=== PATIENT | male | born 1965 | race African-American/Black ===

== ENCOUNTER 2016-07-04 16:55 | Emergency (ER) | payer SELFPAY ==
[~2016-07-04] VITALS: Ht 167.6 cm; Wt 68.0 kg
[~2016-07-04 16:55] MED LIST: GLIP5TAB10 PO; INSU100I17 SQ; LISI1TAB7 PO; LISI2.5T PO; METF10002 PO
[2016-07-04] MEDS ORDERED: IV NORMAL SALINE 1000ML BAG 1,000 ML IV ONE ×2 (17:15→19:15)
[2016-07-04 17:26] LABS: BASO # 0.1 x10^3/uL (0.0-0.2); BASO % 1 % (0-3); EOS % 0 % (0-3); HEMATOCRIT 46.2 % (39.0-53.0); HEMOGLOBIN 15.4 g/dL (13.0-17.5); LYMPH # 1.8 x10^3/uL (1.0-4.8); LYMPH % 18 % (24-48); MEAN CORPUSCULAR HEMOGLOBIN 33 pg (25-35); MEAN CORPUSCULAR HGB CONC 33 g/dL (31-37); MEAN CORPUSCULAR VOLUME 98 fL (79-100); MONO % 9 % (0-9); NEUT % 73 % (31-73); PLATELET COUNT 410 x10^3/uL (140-400); RED BLOOD COUNT 4.71 x10^6/uL (4.30-5.70); RED CELL DISTRIBUTION WIDTH 13.8 % (11.5-14.5); WHITE BLOOD COUNT 10.2 x10^3/uL (4.0-11.0)
[2016-07-04 17:29] LABS: BILIRUBIN,URINE NEGATIVE (NEG); GLUCOSE,URINE >=1000 mg/dL (NEG); NITRITE,URINE NEGATIVE (NEG); PROTEIN,URINE NEGATIVE (NEG-TRACE); UROBILINOGEN,URINE 0.2 mg/dL (0.2 mg/dL)
[2016-07-04 17:41] LABS: BACTERIA,URINE FEW /HPF (0-FEW); RBC,URINE RARE /HPF (0-2); SQUAMOUS EPITHELIAL CELL,UR OCC /LPF
[2016-07-04 17:45] LABS: BARBITURATES NEG (NEG); BENZODIAZEPINES NEG (NEG); CANNABINOIDS POS (NEG); COCAINE NEG (NEG); METHADONE NEG (NEG); OPIATES NEG (NEG); PHENCYCLIDINE NEG (NEG)
[2016-07-04 17:46] LABS: ETHANOL, URINE NEG (NEG)
[2016-07-04 17:53] LABS: CALCIUM 9.6 mg/dL (8.5-10.1); DIRECT BILIRUBIN 0.1 mg/dL (0.0-0.2); GFR 94.6; POTASSIUM 4.6 mmol/L (3.5-5.1); TOTAL BILIRUBIN 0.4 mg/dL (0.2-1.0); TOTAL PROTEIN 8.2 g/dL (6.4-8.2)
[2016-07-04] MEDS ORDERED: INSULIN REGULAR 100 UNIT/ML 10ML VIAL. IV ONE ×2 (18:00→19:15)
--- NOTE | 2016-07-04 18:02 | PHYS DOC ---
Past Medical History Past Medical History: Diabetes-Type II, Hypertension Past Surgical History: Tonsillectomy Alcohol Use: Occasionally Drug Use: Marijuana Adult General Chief Complaint Chief Complaint: BLOOD SUGAR PROBLEM HPI HPI 51-year-old male presenting to the emergency department today with generalized weakness for the past 2 weeks. Patient has a history of elevated blood sugar. Location generalized. Duration intermittent. No alleviating factors. He takes 15 units of insulin glargine twice a day in the morning and at night without any short acting insulin. He denies having a primary care doctor. Review of systems is negative for chest pain shortness of breath abdominal pain nausea vomiting diarrhea. All other review of systems is negative unless otherwise noted in history of present illness. Review of Systems Review of Systems SEE ABOVE. Current Medications Current Medications Current Medications Medications (Trade) Dose Ordered Sig/Victor Manuel Start Time Stop Time Status Last Admin Dose Admin Insulin Human Regular (Novolin R Vial) 10 unit 1X ONCE 07/04/16 18:00 07/04/16 18:01 DC 07/04/16 17:58 10 UNIT Insulin Human Regular 10 unit 10 unit 1X ONCE 07/04/16 19:15 07/04/16 19:16 DC 07/04/16 19:11 10 UNIT Sodium Chloride (Iv Sodium Chloride 0.9% 1000ml Bag) 1,000 ml @ 1,000 mls/hr 1X ONCE 07/04/16 19:15 07/04/16 20:14 DC 07/04/16 19:10 1,000 MLS/HR Allergies Allergies Allergies Coded Allergies Type Severity Reaction Last Updated Verified No Known Drug Allergies 06/26/15 No Physical Exam Physical Exam Constitutional: Well developed, well nourished, no acute distress, non-toxic appearance. Well-appearing individual. HENT: Normocephalic, atraumatic, bilateral external ears normal, oropharynx moist, no oral exudates, nose normal. Eyes: PERRLA, EOMI, conjunctiva normal, no discharge. Neck: Normal range of motion, no tenderness, supple, no stridor. [] Cardiovascular:Heart rate regular rhythm, no murmur Lungs & Thorax: Bilateral breath sounds clear to auscultation Abdomen: Bowel sounds normal, soft, no tenderness, no masses, no pulsatile masses. Skin: Warm, dry, no erythema, no rash. [] Back: No tenderness, no CVA tenderness. Extremities: No tenderness, no cyanosis, no clubbing, ROM intact, no edema. Neurologic: Alert and oriented X 3, normal motor function, normal sensory function, no focal deficits noted. Psychologic: Affect normal, judgement normal, mood normal. [] Current Patient Data Vital Signs Vital Signs Date Time Temp Pulse Resp B/P Pulse Ox O2 Delivery O2 Flow Rate FiO2 07/04/16 19:12 105 20 110/65 94 Room Air 07/04/16 17:00 98.5 98.5 Lab Values Laboratory Tests Test 07/04/16 17:08 07/04/16 17:10 07/04/16 17:20 07/04/16 18:59 Glucose (Fingerstick) 464mg/dL (70-99) H 499mg/dL (70-99) H White Blood Count 10.2x10^3/uL (4.0-11.0) Red Blood Count 4.71x10^6/uL (4.30-5.70) Hemoglobin 15.4g/dL (13.0-17.5) Hematocrit 46.2% (39.0-53.0) Mean Corpuscular Volume 98fL (79-100) Mean Corpuscular Hemoglobin 33pg (25-35) Mean Corpuscular Hemoglobin Concent 33g/dL (31-37) Red Cell Distribution Width 13.8% (11.5-14.5) Platelet Count 410x10^3/uL (140-400) H Neutrophils (%) (Auto) 73% (31-73) Lymphocytes (%) (Auto) 18% (24-48) L Monocytes (%) (Auto) 9% (0-9) Eosinophils (%) (Auto) 0% (0-3) Basophils (%) (Auto) 1% (0-3) Neutrophils # (Auto) 7.5x10^3uL (1.8-7.7) Lymphocytes # (Auto) 1.8x10^3/uL (1.0-4.8) Monocytes # (Auto) 0.9x10^3/uL (0.0-1.1) Eosinophils # (Auto) 0.0x10^3/uL (0.0-0.7) Basophils # (Auto) 0.1x10^3/uL (0.0-0.2) Sodium Level 135mmol/L (136-145) L Potassium Level 4.6mmol/L (3.5-5.1) Chloride Level 96mmol/L (98-107) L Carbon Dioxide Level 30mmol/L (21-32) Anion Gap 9 (6-14) Blood Urea Nitrogen 16mg/dL (8-26) Creatinine 1.0mg/dL (0.7-1.3) Estimated GFR (Cockcroft-Gault) 94.6 Glucose Level 558mg/dL (70-99) *H Serum Osmolality 306mOsm/Kg (279-304) H Lactic Acid Level 1.8mmol/L (0.4-2.0) Calcium Level 9.6mg/dL (8.5-10.1) Total Bilirubin 0.4mg/dL (0.2-1.0) Direct Bilirubin 0.1mg/dL (0.0-0.2) Aspartate Amino Transferase (AST) 20U/L (15-37) Alanine Aminotransferase (ALT) 38U/L (16-63) Alkaline Phosphatase 133U/L (46-116) H Troponin I Quantitative < 0.017ng/mL (0.000-0.055) Total Protein 8.2g/dL (6.4-8.2) Albumin 3.0g/dL (3.4-5.0) L Lipase 175U/L (73-393) Urine Collection Type Unknown Urine Color Yellow Urine Clarity Clear Urine pH 5.0 Urine Specific [place] >=1.030 Urine Protein Negativemg/dL (NEG-TRACE) Urine Glucose (UA) >=1000mg/dL (NEG) Urine Ketones (Stick) Tracemg/dL (NEG) Urine Blood Negative (NEG) Urine Nitrite Negative (NEG) Urine Bilirubin Negative (NEG) Urine Urobilinogen Dipstick 0.2mg/dL (0.2 mg/dL) Urine Leukocyte Esterase Negative (NEG) Urine RBC Rare/HPF (0-2) Urine WBC 1-4/HPF (0-4) Urine Squamous Epithelial Cells Occ/LPF Urine Bacteria Few/HPF (0-FEW) Urine Opiates Screen Neg (NEG) Urine Methadone Screen Neg (NEG) Urine Barbiturates Neg (NEG) Urine Phencyclidine Screen Neg (NEG) Urine Amphetamine/Methamphetamine Neg (NEG) Urine Benzodiazepines Screen Neg (NEG) Urine Cocaine Screen Neg (NEG) Urine Cannabinoids Screen Pos (NEG) Urine Ethyl Alcohol Neg (NEG) Laboratory Tests 07/04/16 17:10 Laboratory Tests 07/04/16 17:10 EKG EKG [] Radiology/Procedures Radiology/Procedures [] Course & Med Decision Making Course & Med Decision Making Pertinent Labs and Imaging studies reviewed. (See chart for details) [] 51-year-old male presenting to the emergency department with elevated blood sugars. Initial blood sugar here for 64. IV insulin given. Otherwise the patient 's vital signs afebrile with tachycardia likely secondary to dehydration. Pertinent physical exam. Patient has a normal physical exam. Otherwise workup negative for DKA. Blood sugar was elevated. 2 L of fluid given for dehydration. 10 units of insulin given. Recheck shows similar glucose. 10 more units of insulin given. Recheck glucose came down approximately 100. Again, patient not acidotic. Not in diabetic ketoacidosis.. Patient discharged follow-up with one of our primary care doctors over the next 2-3 days for chronic diabetic treatment. Dragon Disclaimer Dragon Disclaimer This electronic medical record was generated, in whole or in part, using a voice recognition dictation system. Departure Departure Impression: Primary Impression: Uncontrolled diabetes mellitus Disposition: 01 HOME, SELF-CARE Condition: STABLE Referrals: NO PCP (PCP) ETHEL SALGADO MD Patient Instructions: Hyperglycemia Additional Instructions: Thank you for allowing us to participate in your care today. Followup with your primary care physician in 1-2 days if your symptoms do not improve. If you do not have a primary care provider you can ask for a list of our primary care providers. Return to the emergency department you have any new or concerning findings. This should be evaluated by the primary care physician and any necessary consulting services for continued management within a few days after discharge. Return to emergency room if you have any new or concerning symptoms including but not limited to fever, chills, nausea, vomiting, intractable pain, any new rashes, chest pain, shortness of air, uncontrolled bleeding, difficulty breathing, and/or vision loss. You may have been prescribed medication that can change in your level of thinking and ability to operate machinery. These medications include hydrocodone and Ativan. Also, Benadryl has been known to do this as well. Be sure to check with your pharmacist and ask if the medications you've prescribed can affect your level of consciousness. I recommend not operating heavy machinery or driving while on medication such as these. VAHID PHILLIPS MD Jul 04, 2016 18:02
[2016-07-04 20:30] VITALS: BP 124/67
== END 2016-07-04 20:40 | disposition home or self-care (01) ==
LOC: ER 16:55
DX: E11.65 Type 2 diabetes mellitus with hyperglycemia (principal); E86.0 Dehydration; R00.0 Tachycardia, unspecified; I10 Essential (primary) hypertension; F12.10 Cannabis abuse, uncomplicated; Z79.4 Long term (current) use of insulin
CPT/HCPCS: 36415; 80048; 80076; 81001; 82947; 83605; 83690; 83930; 84484; 85027; 96361; 96374; 96376; 99284; G0481; J1815; J7030

== ENCOUNTER 2016-07-10 14:06 | Emergency (ER) | payer SELFPAY ==
[~2016-07-10] VITALS: Ht 167.6 cm; Wt 56.7 kg
[2016-07-10 14:07] VITALS: BP 136/95
[2016-07-10] MEDS ORDERED: IV NORMAL SALINE 1000ML BAG 1,000 ML IV SCH (14:30)
[2016-07-10 14:33] LABS: BILIRUBIN,URINE NEGATIVE (NEG); GLUCOSE,URINE >=1000 mg/dL (NEG); NITRITE,URINE NEGATIVE (NEG); PROTEIN,URINE NEGATIVE (NEG-TRACE); UROBILINOGEN,URINE 0.2 mg/dL (0.2 mg/dL)
[2016-07-10 14:39] LABS: BACTERIA,URINE 0 /HPF (0-FEW); RBC,URINE 0 /HPF (0-2); SQUAMOUS EPITHELIAL CELL,UR OCC /LPF; WBC,URINE 0 /HPF (0-4)
[2016-07-10 14:44] LABS: BASO # 0.1 x10^3/uL (0.0-0.2); BASO % 1 % (0-3); EOS % 0 % (0-3); HEMOGLOBIN 13.1 g/dL (13.0-17.5); LYMPH # 1.3 x10^3/uL (1.0-4.8); LYMPH % 9 % (24-48); MEAN CORPUSCULAR HEMOGLOBIN 33 pg (25-35); MEAN CORPUSCULAR HGB CONC 32 g/dL (31-37); MEAN CORPUSCULAR VOLUME 102 fL (79-100); MONO % 7 % (0-9); NEUT % 84 % (31-73); PLATELET COUNT 462 x10^3/uL (140-400); RED BLOOD COUNT 4.02 x10^6/uL (4.30-5.70); RED CELL DISTRIBUTION WIDTH 14.6 % (11.5-14.5); WHITE BLOOD COUNT 14.7 x10^3/uL (4.0-11.0)
[2016-07-10 14:59] LABS: CREATININE 1.2 mg/dL (0.7-1.3); GFR 76.6; POTASSIUM 4.9 mmol/L (3.5-5.1)
[2016-07-10] MEDS ORDERED: INSULIN REGULAR 100 UNIT/ML 10ML VIAL. IV ONE (15:45)
--- NOTE | 2016-07-10 16:12 | PHYS DOC ---
Past Medical History Past Medical History: Diabetes-Type II, Hypertension Past Surgical History: Tonsillectomy Alcohol Use: Occasionally Drug Use: Marijuana Adult General Chief Complaint Chief Complaint: BLOOD SUGAR PROBLEM HPI HPI Patient is a 51 year old male with insulin dependent type II DM who presents with hyperglycemia, fatigue, and urinary frequency. States he is taking humalog 10U with meals, but sometimes misses insulin doses intermittently (did not take at dinner last night). He does not follow with a clinic, but has insulin refills at pharmacy. He denies headache, vision changes, nausea or vomiting, fever or chills, chest pain, dyspnea, cough, abdominal pain, diarrhea. Review of Systems Review of Systems Constitutional: Denies fever or chills [] Eyes: Denies change in visual acuity, redness, or eye pain [] HENT: Denies nasal congestion or sore throat [] Respiratory: Denies cough or shortness of breath [] Cardiovascular: No additional information not addressed in HPI [] GI: Denies abdominal pain, nausea, vomiting, bloody stools or diarrhea [] : Denies dysuria or hematuria [] Musculoskeletal: Denies back pain or joint pain [] Integument: Denies rash or skin lesions [] Neurologic: Denies headache, focal weakness or sensory changes [] Endocrine: Denies polyuria or polydipsia [] Current Medications Current Medications Current Medications Medications (Trade) Dose Ordered Sig/Victor Manuel Start Time Stop Time Status Last Admin Dose Admin Insulin Human Regular (Novolin R Vial) 20 unit 1X ONCE 07/10/16 15:45 07/10/16 15:46 DC 07/10/16 15:57 20 UNIT Sodium Chloride (Iv Sodium Chloride 0.9% 1000ml Bag) 1,000 ml @ 1,000 mls/hr Q1H 07/10/16 14:30 07/10/16 15:29 DC 07/10/16 14:30 1,000 MLS/HR Allergies Allergies Allergies Coded Allergies Type Severity Reaction Last Updated Verified No Known Drug Allergies 06/26/15 No Physical Exam Physical Exam Constitutional: Well developed, well nourished, no acute distress, non-toxic appearance. [] HENT: Normocephalic, atraumatic, bilateral external ears normal, oropharynx moist, no oral exudates, nose normal. [] Eyes: PERRLA, EOMI. [] Neck: Normal range of motion, supple. [] Cardiovascular:Heart rate regular rhythm [] Lungs & Thorax: Bilateral breath sounds clear to auscultation [] Abdomen: Bowel sounds normal, soft, no tenderness. [] Skin: Warm, dry, no erythema, no rash. [] Back: Normal range of motion. [] Extremities: No tenderness, ROM intact, no edema. [] Neurologic: Alert and oriented X 3, normal motor function, normal sensory function, no focal deficits noted. [] Psychologic: Affect normal, judgement normal, mood normal. [] Current Patient Data Vital Signs Vital Signs Date Time Temp Pulse Resp B/P Pulse Ox O2 Delivery O2 Flow Rate FiO2 07/10/16 14:07 97.4 110 18 136/95 97 Room Air 97.4 Lab Values Laboratory Tests Test 07/10/16 14:10 07/10/16 14:25 07/10/16 16:40 Urine Collection Type Unknown Urine Color Yellow Urine Clarity Clear Urine pH 6.0 Urine Specific [place] >=1.030 Urine Protein Negativemg/dL (NEG-TRACE) Urine Glucose (UA) >=1000mg/dL (NEG) Urine Ketones (Stick) Negativemg/dL (NEG) Urine Blood Negative (NEG) Urine Nitrite Negative (NEG) Urine Bilirubin Negative (NEG) Urine Urobilinogen Dipstick 0.2mg/dL (0.2 mg/dL) Urine Leukocyte Esterase Negative (NEG) Urine RBC 0/HPF (0-2) Urine WBC 0/HPF (0-4) Urine Squamous Epithelial Cells Occ/LPF Urine Bacteria 0/HPF (0-FEW) White Blood Count 14.7x10^3/uL (4.0-11.0) H Red Blood Count 4.02x10^6/uL (4.30-5.70) L Hemoglobin 13.1g/dL (13.0-17.5) Hematocrit 41.0% (39.0-53.0) Mean Corpuscular Volume 102fL (79-100) H Mean Corpuscular Hemoglobin 33pg (25-35) Mean Corpuscular Hemoglobin Concent 32g/dL (31-37) Red Cell Distribution Width 14.6% (11.5-14.5) H Platelet Count 462x10^3/uL (140-400) H Neutrophils (%) (Auto) 84% (31-73) H Lymphocytes (%) (Auto) 9% (24-48) L Monocytes (%) (Auto) 7% (0-9) Eosinophils (%) (Auto) 0% (0-3) Basophils (%) (Auto) 1% (0-3) Neutrophils # (Auto) 12.3x10^3uL (1.8-7.7) H Lymphocytes # (Auto) 1.3x10^3/uL (1.0-4.8) Monocytes # (Auto) 1.0x10^3/uL (0.0-1.1) Eosinophils # (Auto) 0.0x10^3/uL (0.0-0.7) Basophils # (Auto) 0.1x10^3/uL (0.0-0.2) Sodium Level 134mmol/L (136-145) L Potassium Level 4.9mmol/L (3.5-5.1) Chloride Level 97mmol/L (98-107) L Carbon Dioxide Level 27mmol/L (21-32) Anion Gap 10 (6-14) Blood Urea Nitrogen 14mg/dL (8-26) Creatinine 1.2mg/dL (0.7-1.3) Estimated GFR (Cockcroft-Gault) 76.6 Glucose Level 934mg/dL (70-99) *H Calcium Level 9.0mg/dL (8.5-10.1) Glucose (Fingerstick) 463mg/dL (70-99) H Laboratory Tests 07/10/16 14:25 Laboratory Tests 07/10/16 14:25 Course & Med Decision Making Course & Med Decision Making Pertinent Labs and Imaging studies reviewed. (See chart for details) Has hyperglycemia that is responsive to insulin therapy. Discussed the importance of insulin therapy compliance and follow-up with primary care. Return precautions given. He understands and agrees with plan. Dragon Disclaimer Vazquez Disclaimer This electronic medical record was generated, in whole or in part, using a voice recognition dictation system. Departure Departure Impression: Primary Impression: Uncontrolled diabetes mellitus Disposition: HOME, SELF-CARE Condition: STABLE Referrals: NO PCP (PCP) Patient Instructions: Insulin Treatment in Diabetes Additional Instructions: Take your insulin. Follow-up with your primary care doctor. Return for any concerns. Problem Qualifiers Primary Impression: Uncontrolled diabetes mellitus Diabetes mellitus type: type 2 Diabetes mellitus complication status: without complication Diabetes mellitus contact clerk insulin use: with fdc use Qualified Code: E11.65 - Type 2 diabetes mellitus with hyperglycemia Shalini HARVEY MD Jul 10, 2016 16:12
== END 2016-07-10 18:03 | disposition home or self-care (01) ==
LOC: ER 14:06
DX: E11.65 Type 2 diabetes mellitus with hyperglycemia (principal); F12.10 Cannabis abuse, uncomplicated; I10 Essential (primary) hypertension; Z79.4 Long term (current) use of insulin
CPT/HCPCS: 36415; 80048; 81001; 82947; 85027; 96361; 96374; 99284; J1815; J7030

== ENCOUNTER 2018-09-19 15:13 | Emergency (ER) | payer SELFPAY ==
[~2018-09-19] VITALS: Ht 170.2 cm; Wt 59.0 kg
[~2018-09-19 15:13] MED LIST changes: -METF10002 PO; +METF10007 PO
[2018-09-19] MEDS ORDERED: CEPHALEXIN 250 MG CAPSULE. PO STA (16:08)
[2018-09-19] MEDS ORDERED: AZITHROMYCIN 250 MG TABLET. PO ONE (16:15)
[2018-09-19] MEDS ORDERED: cefTRIAXone IM 250 MG VIAL IM ONE (16:15)
[2018-09-19] MEDS ORDERED: CEPH-264 PO (16:22)
--- NOTE | 2018-09-19 16:23 | PHYS DOC ---
Past Medical History Past Medical History: Diabetes-Type I, High Cholesterol, Hypertension Past Surgical History: Tonsillectomy Smoking: Cigarettes, Less than 1pk/day Alcohol Use: Occasionally Drug Use: None Adult General Chief Complaint Chief Complaint: SKIN RASH/ABSCESS HPI HPI Patient is a 53 year old female who presents with rash that has been ongoing for 4 weeks. The rash is located bilateral axillary, groin, chest and on finger s. She is homeless. The rash as itchy and painful. Pain is rated as 7 out of 10 and throbbing in itchy. Has tried cortisone cream, and Neosporin on the wound. It is not helping. Review of Systems Review of Systems Constitutional: Denies fever or chills [] Eyes: Denies change in visual acuity, redness, or eye pain [] HENT: Denies nasal congestion or sore throat [] Respiratory: Denies cough or shortness of breath [] Cardiovascular: No additional information not addressed in HPI [] GI: Denies abdominal pain, nausea, vomiting, bloody stools or diarrhea [] : Denies dysuria or hematuria [] Musculoskeletal: Denies back pain or joint pain [] Integument: Reports rash and skin lesions diffusely. Wounds bilaterally in the axilla. Rash and wounds itch. Neurologic: Denies headache, focal weakness or sensory changes [] Endocrine: Denies polyuria or polydipsia [] Complete systems were reviewed and found to be within normal limits, except as documented in this note. Current Medications Current Medications Current Medications Medications (Trade) Dose Ordered Sig/Victor Manuel Start Time Stop Time Status Last Admin Dose Admin Azithromycin (Zithromax) 1,000 mg 1X ONCE 09/19/18 16:15 09/19/18 16:16 DC Ceftriaxone Sodium (Rocephin Im) 250 mg 1X ONCE 09/19/18 16:15 09/19/18 16:16 DC Cephalexin HCl (Keflex) 500 mg 1X STAT 09/19/18 16:08 09/19/18 16:12 DC Allergies Allergies Allergies Coded Allergies Type Severity Reaction Last Updated Verified No Known Drug Allergies 06/26/15 No Physical Exam Physical Exam Constitutional: Well developed, well nourished, no acute distress, non-toxic appearance. [] HENT: Normocephalic, atraumatic, bilateral external ears normal, oropharynx moist, no oral exudates, nose normal. [] Eyes: PERRLA, EOMI, conjunctiva normal, no discharge. [] Neck: Normal range of motion, no tenderness, supple, no stridor. [] Cardiovascular:Heart rate regular rhythm, no murmur [] Lungs & Thorax: Bilateral breath sounds clear to auscultation [] Abdomen: Bowel sounds normal, soft, no tenderness, no masses, no pulsatile masses. [] Skin: Has ulcerated rash/wound bilaterally in axillary. Has rash on chest, groin and fingers that is papular in nature. Is itching rash while in room. Back: No tenderness, no CVA tenderness. [] Extremities: No tenderness, no cyanosis, no clubbing, ROM intact, no edema. [] Neurologic: Alert and oriented X 3, normal motor function, normal sensory function, no focal deficits noted. [] Psychologic: Affect normal, judgement normal, mood normal. [] Current Patient Data Vital Signs Vital Signs Date Time Temp Pulse Resp B/P (MAP) Pulse Ox O2 Delivery O2 Flow Rate FiO2 09/19/18 15:39 98.8 96 18 156/90 (112) 96 Room Air 98.8 EKG EKG [] Radiology/Procedures Radiology/Procedures [] Course & Med Decision Making Course & Med Decision Making Pertinent Labs and Imaging studies reviewed. (See chart for details) Discussed the possibility of the rash being disseminated gonococcal infection. Discussed with patient that I want to do further work up patient refuses labs or workup. Patient is homeless. Will cover with Rocephin and Azithromycin. Will also put on Keflex to cover for MRSA. Obtained wound culture of L axillary. Will have leave AMA. Advised patient of risks of leaving including due to nature of rash and without further workup. Patient states he understands the risk. Dragon Disclaimer Dragon Disclaimer This electronic medical record was generated, in whole or in part, using a voice recognition dictation system. Departure Departure Impression: Primary Impression: Rash Disposition: AGAINST MEDICAL ADVICE Condition: STABLE Referrals: NO PCP (PCP) Patient Instructions: Rash Additional Instructions: Please follow up with primary care in regard to diabetes. If symptoms get worse come back to ER. No sex for 2 weeks. Notify partners possibility of infection. Take all of antibiotic. Scripts Cephalexin (KEFLEX) 500 Mg Capsule 1 CAP PO BID for 7 Days, #14 CAP Prov: HERNANDEZ,ETHEL FRENCH TRANSLATOR 09/19/18 ETHEL HERNANDEZ APRN September 19, 2018 16:23
[2018-09-19 16:45] VITALS: BP 163/94
--- NOTE | 2018-09-28 17:24 | VNOTE ---
CALL BACK NOTE CALL BACK Microbiology 09/19/18 Anaerobic/Aerobic Culture - Final, Complete 09/19/18 Anaerobic Culture Result 1 (ISH) - Final, Complete 09/19/18 Anaerobic Culture Result 2 (ISH) - Final, Complete 09/19/18 Anaerobic Culture Result 3 (ISH) - Final, Complete 09/19/18 Anaerobic Culture Result 4 (ISH) - Final, Complete 09/19/18 Antimicrobic Susceptibility - Final, Complete 09/19/18 Aerobic Culture - Final, Complete 09/19/18 Aerobic Culture Result 1 (ISH) - Final, Complete 09/19/18 Aerobic Culture Result 2 (ISH) - Final, Complete 09/19/18 Aerobic Culture Result 3 (ISH) - Final, Complete 09/19/18 Antimicrobic Susceptibility - Final, Complete 09/19/18 Gram Stain - Final, Complete 09/19/18 Gram Stain Result 1 (ISH) - Final, Complete 09/19/18 Gram Stain Result 2 (ISH) - Final, Complete Called regarding labs. Left NAA CRAIG FISHING BOAT MATE Sep 28, 2018 17:24
--- NOTE | 2018-09-29 12:19 | VNOTE ---
CALL BACK NOTE CALL BACK Microbiology 09/19/18 Anaerobic/Aerobic Culture - Final, Complete 09/19/18 Anaerobic Culture Result 1 (ISH) - Final, Complete 09/19/18 Anaerobic Culture Result 2 (ISH) - Final, Complete 09/19/18 Anaerobic Culture Result 3 (ISH) - Final, Complete 09/19/18 Anaerobic Culture Result 4 (ISH) - Final, Complete 09/19/18 Antimicrobic Susceptibility - Final, Complete 09/19/18 Aerobic Culture - Final, Complete 09/19/18 Aerobic Culture Result 1 (ISH) - Final, Complete 09/19/18 Aerobic Culture Result 2 (ISH) - Final, Complete 09/19/18 Aerobic Culture Result 3 (ISH) - Final, Complete 09/19/18 Antimicrobic Susceptibility - Final, Complete 09/19/18 Gram Stain - Final, Complete 09/19/18 Gram Stain Result 1 (ISH) - Final, Complete 09/19/18 Gram Stain Result 2 (ISH) - Final, Complete Spoke with patient's sister regarding wound culture, she has no way of contacting patient because patient has no phone and is homeless NAA CRAIG APRN Sep 29, 2018 12:18
[2018-10-04] MEDS ORDERED: METF10007 PO (09:58)
[2018-10-04] MEDS ORDERED: LISI2.5T PO (09:58)
[2018-10-04] MEDS ORDERED: HYDR-2761 PO (09:58)
[2018-10-04] MEDS ORDERED: INSU100I13 SQ (09:58)
[2018-10-04] MEDS ORDERED: GLIP5TAB10 PO (09:58)
== END 2018-09-19 16:47 | disposition left against medical advice (07) ==
LOC: ER 15:13
DX: S41.102A Unspecified open wound of left upper arm, initial encounter (principal); S41.101A Unspecified open wound of right upper arm, initial encounter; L29.9 Pruritus, unspecified; E11.9 Type 2 diabetes mellitus without complications; E78.00 Pure hypercholesterolemia, unspecified; I10 Essential (primary) hypertension; F17.210 Nicotine dependence, cigarettes, uncomplicated; Z59.0 Homelessness; X58.XXXA Exposure to other specified factors, initial encounter; Y93.89 Activity, other specified; Y92.89 Other specified places as the place of occurrence of the external cause; Y99.8 Other external cause status
CPT/HCPCS: 87071; 87075; 96372; 99284; J0696; Q0144; 87070